=== PATIENT | female | born 1985 | race African-American/Black ===

== ENCOUNTER 2024-06-27 12:10 | Emergency (ER) | payer OTHER ==
[~2024-06-27] VITALS: Ht 162.6 cm; Wt 67.9 kg
[2024-06-27 12:16] VITALS: TEMP 97.7
[2024-06-27 13:42] LABS: BASO % 0.5 % (0.0-1.0); EOS # 0.1 10^3/uL (0.0-0.5); EOS % 1.3 % (0.0-3.0); HEMATOCRIT 37.5 % (36.0-47.0); HEMOGLOBIN 12.1 g/dl (12.0-15.5); LYMPH # 1.4 10^3/uL (1.5-5.0); LYMPH % 38.3 % (24.0-44.0); MEAN CORPUSCULAR HEMOGLOBIN 31.3 pg (27.0-33.0); MEAN CORPUSCULAR HGB CONC 32.3 g/dl (32.0-36.5); MEAN CORPUSCULAR VOLUME 96.9 fl (80.0-96.0); MONO # 0.4 10^3/uL (0.0-0.8); MONO % 10.2 % (2.0-8.0); NEUTROPHILS # 1.8 10^3/uL (1.5-8.5); NEUTROPHILS % 49.7 % (36.0-66.0); PLATELET COUNT, AUTOMATED 212 10^3/uL (150-450); RED BLOOD COUNT 3.87 10^6/uL (4.00-5.40); WHITE BLOOD COUNT 3.7 10^3/uL (4.0-10.0)
[2024-06-27 13:59] LABS: ERYTHROCYTE SEDIMENTATION RATE 9 mm/hr (0-20)
[2024-06-27 14:12] LABS: C REACTIVE PROTEIN QUANTITATIV < 0.40 MG/DL (<1.0)
[2024-06-27 14:13] LABS: CPK CREATINE PHOSPHOKINASE 543 U/L (34-145); MB/CK RELATIVE INDEX 0.73 (< OR =4)
[2024-06-27 14:14] LABS: ALBUMIN 3.9 G/DL (3.2-5.2); ALKALINE PHOSPHATASE 128 U/L (35-104); ALT/SGPT 25 U/L (7.0-40); AST/SGOT 19 U/L (<34); BILIRUBIN,DIRECT < 0.1 MG/DL (<0.4); BILIRUBIN,TOTAL 0.3 MG/DL (0.3-1.2); BLOOD UREA NITROGEN 17 MG/DL (9-23); CALCIUM LEVEL 9.7 MG/DL (8.5-10.1); CARBON DIOXIDE LEVEL 29 MMOL/L (20-31); CHLORIDE LEVEL 108 MMOL/L (98-107); CREATININE FOR GFR 0.86 MG/DL (0.55-1.30); GLOMERULAR FILTRATION RATE > 60.0 (>60); GLUCOSE, FASTING 75 MG/DL (60-100); HCG, SERUM QUALITATIVE NEGATIVE (NEGATIVE); SODIUM LEVEL 142 MMOL/L (136-145); TOTAL PROTEIN 7.3 G/DL (5.7-8.2)
[2024-06-27] MEDS ORDERED: ISOVUE-370 76% 100ML VIAL As Ordered ONE (14:16)
[2024-06-27 15:30] VITALS: BP 128/75; O2SAT 100
[2024-06-27] MEDS ORDERED: IBUP80TA PO (15:41)
== END 2024-06-27 16:42 | disposition home or self-care (01) ==
LOC: M ED 12:10
DX: M94.0 Chondrocostal junction syndrome [Tietze] (principal)
CPT/HCPCS: 36415; 71275; 80048; 80076; 82550; 82553; 83735; 84484; 84703; 85025; 85652; 86140; 93005; 99284; Q9967

== ENCOUNTER → 2024-09-09 | Outpatient (CLI) | payer OTHER ==
[~2024-09-09] MED LIST: IBUP80TA PO; PROHANCE 279.3MG/ML 15ML VIAL ONE
== END ==
LOC: M PLAIMG 09:07
PROVIDERS: ATTEND General Practice
DX: D25.9 Leiomyoma of uterus, unspecified (principal)
CPT/HCPCS: 72197; A9576

== ENCOUNTER 2024-10-31 08:22 | Emergency (ER) | payer OTHER ==
[~2024-10-31] VITALS: Ht 162.6 cm; Wt 66.2 kg
[~2024-10-31 08:22] MED LIST changes: -PROHANCE 279.3MG/ML 15ML VIAL ONE
[2024-10-31] MEDS ORDERED: PREN1CHW6 PO (08:50)
[2024-10-31] MEDS ORDERED: SERT-141 PO (08:50)
[2024-10-31] MEDS ORDERED: INDO50CA91 PO (08:50)
[2024-10-31] MEDS ORDERED: NAPR-837 PO (12:08)
[2024-10-31 12:23] VITALS: BP 133/88; TEMP 96.6; O2SAT 100
[2024-10-31] MEDS: NAPROXEN 250 MG TAB PO ONE (12:27)
[2024-10-31] MEDS: ACETAMINOPHEN 325 MG TAB PO ONE (12:28)
== END 2024-10-31 13:06 | disposition home or self-care (01) ==
LOC: M ED 08:22
DX: S43.402A Unspecified sprain of left shoulder joint, initial encounter (principal); Y92.9 Unspecified place or not applicable; Y93.9 Activity, unspecified; Y99.0 Civilian activity done for income or pay; W10.8XXA Fall (on) (from) other stairs and steps, initial encounter; Z79.810 Long term (current) use of selective estrogen receptor modulators (SERMs); Z79.899 Other long term (current) drug therapy